=== PATIENT | male | born 1990 | race Caucasian/White ===

== ENCOUNTER → 2024-05-24 07:48 | Outpatient (REF) | payer OTHER, SELFPAY | LOC: HWRAD 07:48 | PROVIDERS: ATTENDING PHYSICIAN Urology; FAMILY PHYSICIAN Nurse Practitioner Family | DX: N20.0 Calculus of kidney (principal); R10.9 Unspecified abdominal pain | CPT/HCPCS: 74018; 76770 ==

== ENCOUNTER 2024-07-07 10:18 | Emergency (ER) | payer OTHER, SELFPAY ==
[2024-07-07 10:18] VITALS: BMI 21.4
[2024-07-07 10:23] VITALS: BP 171/118
[2024-07-07 10:57] LABS: Urine Albumin Negative (Neg - Trace); Urine Bilirubin Negative (Negative); Urine Character Clear (Clear); Urine Color Yellow; Urine Glucose Negative (Negative); Urine Ketone Negative (Negative); Urine Leukocyte Negative (Negative); Urine Nitrite Negative (Negative); Urine Occult Blood Negative (Negative); Urine Specific Gravity 1.015 (<1.030); Urine Urobilinogen Negative (Neg - 1+); Urine pH 6.5 (5.0-9.0)
[2024-07-07 10:58] LABS: % Eosinophils 1.2 % (0-6); % Immature Granulocytes 0.3 % (0-0.5); % Lymphocytes 19.4 % (20.5-51.1); % Monocytes 6.6 % (1.7-9.3); % Neutrophils 71.5 % (42.2-75.2); Absolute Basophils 0.1 10^3/uL (0-0.2); Absolute Eosinophils 0.1 10^3/uL (0-0.7); Absolute Monocytes 0.7 10^3/uL (0.1-0.6); Absolute Neutrophils 7.5 10^3/uL (1.4-6.5); Hematocrit 44.6 % (39.0-52.0); Hemoglobin 15.2 g/dL (13.0-18.0); Mean Corp Hgb Conc. 34.1 g/dL (33.0-37.0); Mean Corpuscular Hgb 28.7 pg (27.0-31.0); Mean Corpuscular Volume 84.2 fL (80.0-94.0); Mean Platelet Volume 9.1 fL (7.4-10.4); Nucleated Red Blood Cells % 0 % (-); Platelet Count 264 10^3/uL (130-400); Red Cell Dist. Width 13.2 % (11.5-14.5); White Blood Cell Count 10.5 10^3/uL (4.8-10.8)
[2024-07-07 11:08] LABS: ALT (SGPT) 16 U/L (0-50); AST (SGOT) 22 U/L (17-59); Acetaminophen < 10 ug/ml (10-30); Alcohol 45 mg/dl; Alkaline Phosphatase 50 U/L (38-126); Blood Urea Nitrogen 7 mg/dl (9-20); Calcium 9.7 mg/dl (8.4-10.2); Carbon Dioxide 29 mmol/L (22-30); Chloride 103 mmol/L (98-107); Glucose 82 mg/dl (70-99); Potassium 4.3 mmol/L (3.5-5.1); Salicylate < 1.0 mg/dl (2.0-20.0); Sodium 143 mmol/L (135-145); Total Bilirubin 0.7 mg/dl (0.2-1.3); Total Protein 7.6 g/dl (6.3-8.2); eGFR > 60.00
[2024-07-07 11:20] LABS: Amphetamines Negative (Negative); Barbiturates Negative (Negative); Benzodiazepines Negative (Negative); Buprenorphine Negative (Negative); Methadone Negative (Negative); Methamphetamines Negative (Negative)
[2024-07-07 11:21] LABS: Cocaine Positive (Negative); Marijuana Positive (Negative); Opiates Negative (Negative); Phencyclidine Negative (Negative); Tricyclic Antidepressants Negative (Negative)
[2024-07-07 12:38] LABS: Fentanyl, Urine Negative (Negative)
[2024-07-07 13:40] VITALS: BP 164/114
[2024-07-07 15:41] VITALS: BP 179/96
--- NOTE | 2024-07-07 15:44 | ED.GENMED ---
History of Present Illness
General
Chief Complaint: Chest Pain
Source: patient
Exam Limitations: none
Time Seen by Provider: 07/07/24 15:31
Nursing documentation reviewed up to this point in time: agreed with
History of Present Illness
History of Present Illness:
33-year-old male presents emergency department after having EKG performed at his primary care office. He reported to them that he has left-sided chest tightness ongoing for several weeks. The primary care physician noted a right axis deviation and
alcohol the patient's breath, and sent him to the emergency department. He states he drinks alcohol daily. He last drank at 2 AM.
Past History
Past History
ED Past Medical History: Arrthythmia
ED Past Surgical History: Other (Pontiac teeth)
Social History
Tobacco: Non-smoker
Alcohol: Chronic alcoholic
Drug: Marijuana and Cocaine
Living: with family
Review of Systems
Review of Systems
Allergies reviewed?: Yes
All Other Systems: Not applicable
Constitutional: Reports no symptoms
EENT: Reports no symptoms
Respiratory: Reports no symptoms; Denies trouble breathing
Cardiac: Reports chest pain; Denies syncope
ABD/GI: Reports no symptoms
: Reports no symptoms
Musculoskeletal: Reports no symptoms
Skin: Reports no symptoms
Neurological: Reports no symptoms
Endocrine: Reports no symptoms
Hematologic/Lymphatic: Reports no symptoms
Psychiatric: Reports no symptoms
Phy Exam
Physical Exam
Physical Exam:
Physical Exam
General: no apparent distress, not acutely ill
Neck: supple. no meningeal signs. normal posterior pharynx
Heart: s1/s2 regular rate and rhythm, no murmur. equal radial
pulses.
HEENT: Pupils equal round reactive to light, EOMI
Lungs: no acute respiratory distress. clear bilaterally
Abdomen: normal bowel sounds. not tender. no CVAT
Neuro: alert and oriented. no focal neurological deficits cranial nerves II through XII intact
Skin: no rash
Psychiatric: well kept. interactive and cooperative
Extremities: no edema. no calf tenderness. negative homans. good distal pulses
Scores
Heart Score for Chest Pain Patients
STEMI patient?: No
History: Slightly or Non-Suspicious
ECG: Normal
Age: </= 45 years
Risk Factors: No Risk Factors
Troponin: </= Normal Limit
Heart Score for Chest Pain Patients: 0
Heart Score Risk: 2.5% MACE over next 6 weeks
Course
Orders/Labs/Results
Orders:
Orders
07/07/24 10:19
Electrocardiogram (*1) Urgent
Reason for Study: Other
Other Reason for Exam: abn EKG
EKG- Treatment ONCE
07/07/24 10:37
Acetaminophen Urgent
Alcohol Urgent
Complete Blood Count/With Diff Urgent
Comprehensive Metabolic Panel Urgent
Fentanyl, Urine Urgent
Salicylate Urgent
Urinalysis Reflex To Culture Urgent
Date Specimen was Collected: 07/07/24
Time Specimen was Collected: 10:29
Urine Drug Abuse Screen Urgent
Date Specimen was Collected: 07/07/24
Time Specimen was Collected: 10:29
07/07/24 15:45
D-Dimer Urgent
Troponin I Urgent
07/07/24 15:47
CR Chest - 2 Views Urgent
Comment:
Reason For Exam: chest pain
Abnormal Lab Results
07/07/24
10:37
Absolute Neuts (auto) 7.5 H 10^3/uL
(1.4-6.5)
Absolute Monos (auto) 0.7 H 10^3/uL
(0.1-0.6)
Lymphocytes % 19.4 L %
(20.5-51.1)
BUN 7 L mg/dl
(9-20)
Salicylates < 1.0 L mg/dl
(2.0-20.0)
Acetaminophen < 10 L ug/ml
(10-30)
Urine Cocaine Screen Positive H
(Negative)
U Marijuana (THC) Screen Positive H
(Negative)
07/07/24 10:37
07/07/24 10:37
Vital Signs
Initial and Last Documented VS:
Initial Vital Signs
Temp Pulse Resp BP Pulse Ox
98.7 F 80 18 171/118 99
07/07/24 10:23 07/07/24 10:23 07/07/24 10:23 07/07/24 10:23 07/07/24 10:23
Last Documented Vital Signs
Temp Pulse Resp BP Pulse Ox
98.1 F 63 14 179/96 100
07/07/24 13:40 07/07/24 15:45 07/07/24 15:41 07/07/24 15:41 07/07/24 15:45
MDM/Problems Addressed
Differential Diagnosis Includes:
ACS, PE
MDM/Problems Addressed:
33-year-old male with chronic chest pain/tightness. Normal troponin, D-dimer and chest x-ray. Patient with alcohol abuse, will speak with [facility]. No signs of alcohol withdrawal.
*Radiology
Radiology exam reviewed: preliminary read by ED provider (Chest x-ray no acute findings)
*Pulse Oximetry
Patient hypoxic: no
*EKG
Interpreted by ED Provider?: Yes
EKG Intrepretation Date: 07/07/24
EKG Intrepretation Time: 10:22
Interpretation: abnormal
Comparison EKG: no comparison EKG present
Heart Rate: 73
Rate: normal
Rhythm: sinus
Vinton: normal axis
Interval: normal interval
QRS Pattern: normal QRS
Ischemia: no ischemia
*[employer] Interpretation
Rate: normal
Interpretation: normal
Heart Rate: 70
Rhythm: sinus
*Critical Care Note
Total Time (30-74mins, 75-104mins- exclusive of procedures): Not Applicable
Data Reviewed
Further Testing Considered But Not Given:
CT chest not indicated
Patient Management
Social determinants of health affecting care: Living situation and Strong social support
Discussion with other providers: Other ([facility] staff)
Escalation/DeEscalation of care consider admission/obs:
Admit not indicated
ED Attending Note
-
Portions of this chart may have been created with voice recognition software.� Occasional wrong word or��sound alike� substitutions may have occurred due to the inherent limitations of voice recognition software.
Discharge Plan
Departure
Patient Disposition: Home (Routine Discharge)
Date of Disposition: 07/07/24
Time of Disposition: 16:54
Patient with high blood pressure during this ER visit?: Yes
Condition: Good
Discharge Problem:
Chest pain, Alcohol abuse
Instructions: Chest Pain PCP Follow Up, BLOOD PRESSURE, Alcohol use disorder - ED discharge instructions
Activity Restrictions/Additional Instructions:
Follow-up with primary care, and [facility] resources. Return for any concerns.
Interventions
Interventions:
*Risk Screen - Suicide Last Done: 07/07/24 10:23
*General Assessment Last Done: 07/07/24 10:23
Discharge Date and Time
Print Language: [place]
[2024-07-07 16:00] VITALS: BP 153/98
[2024-07-07 16:25] LABS: Troponin I < 0.012 ng/ml
[2024-07-07 16:37] LABS: D-Dimer < 0.27 ug/mlFEU (0.00-0.50)
[2024-07-07 16:49] VITALS: BP 162/98
[2024-07-07 17:38] VITALS: BP 159/102
== END 2024-07-07 18:12 | disposition home or self-care (01) ==
LOC: EMR 10:18
PROVIDERS: Emergency Medicine; EMERGENCY PHYSICIAN Emergency Medicine
DX: R07.89 Other chest pain (principal); F10.10 Alcohol abuse, uncomplicated
CPT/HCPCS: 99283; 71046; 80053; 80143; 80179; 80306; 80307; 81003; 82077; 84484; 85025; 85379; 93005

== ENCOUNTER → 2024-07-18 07:21 | Outpatient (REF) | payer OTHER, SELFPAY | LOC: HWRCS 07:21 | PROVIDERS: ATTENDING PHYSICIAN Internal Medicine Cardiovascular Disease; FAMILY PHYSICIAN Nurse Practitioner Family; REFERRING PHYSICIAN Urology | DX: R07.2 Precordial pain (principal); R94.31 Abnormal electrocardiogram [ECG] [EKG]; Z01.818 Encounter for other preprocedural examination; N20.0 Calculus of kidney | CPT/HCPCS: 74018; 93306 ==

== ENCOUNTER → 2024-07-19 14:33 | Outpatient (REF) | payer OTHER, SELFPAY | LOC: RCS 14:33 | PROVIDERS: ATTENDING PHYSICIAN Internal Medicine Cardiovascular Disease; FAMILY PHYSICIAN Nurse Practitioner Family | DX: R07.2 Precordial pain (principal); R94.31 Abnormal electrocardiogram [ECG] [EKG]; Z01.818 Encounter for other preprocedural examination | CPT/HCPCS: 93017 ==

== ENCOUNTER → 2024-08-14 12:23 | Outpatient (REF) | payer OTHER, SELFPAY | LOC: HWRAD 12:23 | PROVIDERS: ATTENDING PHYSICIAN Urology; FAMILY PHYSICIAN Nurse Practitioner Family | DX: N20.0 Calculus of kidney (principal) | CPT/HCPCS: 74018 ==

== ENCOUNTER → 2024-09-07 14:20 | Outpatient (REF) | payer OTHER, SELFPAY | LOC: HWRAD 14:20 | PROVIDERS: ATTENDING PHYSICIAN Urology; FAMILY PHYSICIAN Nurse Practitioner Family | DX: N20.0 Calculus of kidney (principal) | CPT/HCPCS: 74018 ==